=== PATIENT | male | born 1970 | race American Indian/Alaskan Native ===

== ENCOUNTER 2021-12-23 15:14 | Outpatient (CLI) | payer OTHER ==
[2021-12-23 16:50] LABS: Hematocrit 26.5 % (35.5-45.6); Hemoglobin 8.7 gm/dl (11.8-15.2); Mean Corpuscular HGB Conc 33 % (32-34); Mean Corpuscular Volume 87 fl (84-94); Platelet Count 531 K/mm3 (140-440); Red Blood Count 3.05 M/mm3 (3.65-5.03)
[2021-12-23 16:56] LABS: Red Cell Distribution Width 20.2 % (13.2-15.2)
[2021-12-23 17:16] LABS: BUN/Creatinine Ratio 20; Blood Urea Nitrogen 24 mg/dL (9-20); Calcium 8.8 mg/dL (8.4-10.2); Hemolysis Index 33
== END 2021-12-23 15:15 | disposition home or self-care (01) ==
LOC: LAB 15:14
PROVIDERS: ATTEND Internal Medicine Cardiovascular Disease
DX: I50.22 Chronic systolic (congestive) heart failure (principal); Z79.01 Long term (current) use of anticoagulants; Z95.811 Presence of heart assist device
CPT/HCPCS: 80048; 83735; 85027

== ENCOUNTER 2021-12-30 11:51 | Outpatient (CLI) | payer OTHER | END 2021-12-30 11:52 | disposition home or self-care (01) | LOC: LAB 11:51 | PROVIDERS: ATTEND Internal Medicine Cardiovascular Disease | DX: I50.22 Chronic systolic (congestive) heart failure (principal); Z79.01 Long term (current) use of anticoagulants; Z95.811 Presence of heart assist device | CPT/HCPCS: 36415 ==

== ENCOUNTER 2022-01-06 14:44 | Outpatient (CLI) | payer OTHER ==
[2022-01-06 15:13] LABS: INR 2.94 (0.87-1.13)
== END 2022-01-06 14:45 | disposition home or self-care (01) ==
LOC: LAB 14:44
PROVIDERS: ATTEND Internal Medicine Cardiovascular Disease
DX: I50.22 Chronic systolic (congestive) heart failure (principal); Z79.01 Long term (current) use of anticoagulants; Z95.811 Presence of heart assist device
CPT/HCPCS: 36415; 85610

== ENCOUNTER 2022-01-11 13:17 | Outpatient (CLI) | payer OTHER ==
[2022-01-11 14:11] LABS: Hematocrit 27.2 % (35.5-45.6); Mean Corpuscular HGB Conc 33 % (32-34); Mean Corpuscular Volume 82 fl (84-94); Platelet Count 602 K/mm3 (140-440); Red Blood Count 3.31 M/mm3 (3.65-5.03); Red Cell Distribution Width 19.8 % (13.2-15.2)
[2022-01-11 14:18] LABS: INR 2.7 (0.87-1.13)
[2022-01-11 15:09] LABS: Alanine Aminotransferase 26 units/L (7-56); Albumin 3.8 g/dL (3.9-5); BUN/Creatinine Ratio 22; Blood Urea Nitrogen 28 mg/dL (9-20); Calcium 9.3 mg/dL (8.4-10.2); Hemolysis Index 7
== END 2022-01-11 13:18 | disposition home or self-care (01) ==
LOC: LAB 13:17
PROVIDERS: ATTEND Internal Medicine Cardiovascular Disease
DX: I50.22 Chronic systolic (congestive) heart failure (principal); Z79.01 Long term (current) use of anticoagulants; Z95.811 Presence of heart assist device
CPT/HCPCS: 36415; 80053; 83735; 85027; 85610

== ENCOUNTER 2022-01-26 13:37 | Outpatient (CLI) | payer OTHER ==
[2022-01-26 15:16] LABS: INR 1.78 (0.87-1.13)
== END 2022-01-26 13:38 | disposition home or self-care (01) ==
LOC: LAB 13:37
PROVIDERS: ATTEND Internal Medicine Cardiovascular Disease
DX: I50.22 Chronic systolic (congestive) heart failure (principal); E66.01 Morbid (severe) obesity due to excess calories; Z79.01 Long term (current) use of anticoagulants; Z95.811 Presence of heart assist device
CPT/HCPCS: 36415; 85610

== ENCOUNTER 2022-01-31 14:56 | Outpatient (CLI) | payer OTHER ==
[2022-01-31 15:39] LABS: Hematocrit 29.5 % (35.5-45.6); Hemoglobin 9.3 gm/dl (11.8-15.2); Mean Corpuscular HGB Conc 32 % (32-34); Mean Corpuscular Volume 83 fl (84-94); Platelet Count 312 K/mm3 (140-440); Red Blood Count 3.56 M/mm3 (3.65-5.03)
[2022-01-31 15:40] LABS: Red Cell Distribution Width 20.9 % (13.2-15.2)
[2022-01-31 15:45] LABS: INR 1.97 (0.87-1.13)
[2022-01-31 16:10] LABS: Alanine Aminotransferase 21 units/L (7-56); Albumin 3.7 g/dL (3.9-5); BUN/Creatinine Ratio 18; Blood Urea Nitrogen 24 mg/dL (9-20); Calcium 9.3 mg/dL (8.4-10.2); Hemolysis Index 2
== END 2022-01-31 14:57 | disposition home or self-care (01) ==
LOC: LAB 14:56
PROVIDERS: ATTEND Internal Medicine Cardiovascular Disease
DX: I50.22 Chronic systolic (congestive) heart failure (principal); Z79.01 Long term (current) use of anticoagulants; Z98.811 Dental restoration status; Z95.811 Presence of heart assist device
CPT/HCPCS: 36415; 80053; 83735; 85027; 85610

== ENCOUNTER 2022-02-08 13:24 | Outpatient (CLI) | payer OTHER ==
[2022-02-08 14:20] LABS: INR 2.09 (0.87-1.13)
== END 2022-02-08 13:25 | disposition home or self-care (01) ==
LOC: LAB 13:24
PROVIDERS: ATTEND Internal Medicine Cardiovascular Disease
DX: I50.22 Chronic systolic (congestive) heart failure (principal); Z79.01 Long term (current) use of anticoagulants; Z95.811 Presence of heart assist device
CPT/HCPCS: 36415; 85610